=== PATIENT | female | born 1995 | race African-American/Black ===

== ENCOUNTER 2019-06-16 10:33 | Inpatient (IN) | payer MEDICAID ==
[2019-06-16] MEDS ORDERED: RINGERS SOLUTION,LACTATED 1,000 ML IV ONE (11:45)
--- NOTE | 2019-06-16 12:06 | Admission Physical ---
Datetime Report Generated by CPN: 06/16/2019 12:06 CURRENT ADMISSION Hx Assessment: The History has been Reviewed and is Current Chief Complaint: Uterine Contractions; Suspected Ruptured Membranes Indication for Induction: Not Applicable Admit Impression : Term, Intrauterine ; Active Labor; Ruptured Membranes Admit Plan: Admit to Unit; Initiate Labor Protocol ALLERGIES Medication Allergies: No Medication Allergies: No Known Allergies (06/16/2019) Latex: No Latex Allergies Food Allergies: NONE Environmental Allergies: NONE OBSTETRICAL HISTORY EDC: 06/25/2019 00:00 : 1 Para: 0 Term: 0 : 0 SAB: 0 IAB: 0 Ectopic: 0 Livin Cesareans: 0 VBACs: 0 Multiple Births: 0 Gestational Diabetes: No Rh Sensitization: No Incompetent Cervix: No ODIN: No Infertility: No ART Treatment: No Uterine Anomaly: No IUGR: No Hx Previous C/S: No Macrosomia: No Hx Loss/Stillborn: No PIH: No Hx : No Placenta Previa/Abruption: No Depression/PP Depression: No PTL/PROM: No Post Hemorrhage: No Current Procedures: Ultrasound SEE RECORDS Alcohol: No Marijuana : No Cocaine: No Other Illicit Drugs: No Cigarettes: Never Smoker. [id number] MEDICAL HISTORY Diabetes: No Blood Transfusion: No Pulmonary Disease (Asthma, TB): Yes Breast Disease: No Hypertension: No Functional Support Analyst Surgery: No Heart Disease: No Hosp/Surgery: No Autoimmune Disorder: No Anesthetic Complications: No Kidney Disease: No Abnormal Pap Smear: No Neuro/Epilepsy: No Psychiatric Disorders: No Other Medical Diseases: Yes Hepatitis/Liver Disease: No Significant Family History: No Varicosities/Phlebitis: No Trauma/Violence : No Thyroid Dysfunction: No Medical History Comments: CHILDHOOD ASTHMA; OBESITY INFECTIOUS HISTORY Gonorrhea: No Genital Herpes: No Chlamydia: No Tuberculosis: No Syphilis: No Hepatitis: No HIV/AIDS Exposure: No Rash or Viral Illness: No HPV: No PHYSICAL EXAM General: Normal Heart: Normal Lungs: Normal Abdomen: Normal Pelvic Type: Adequate Vital Signs: Reviewed; Within Normal Limits VAGINAL EXAM Dilatation: 1 Effacement: 100 Station: -2 Contraction Comments: irregular MEMBRANES Membranes: Ruptured FETUS A EGA: 38.5 Monitoring: Auscultation Variability: Moderate 6-25bpm FHR Category: Category I Presentation: Vertex Admit Comment: 23yo G1 @ 38w5d into L_D with SROM @ 0930 and contractions since yesterday. Pt. is O pos, RI, GBS neg with significant hx for obesity and childhood asthma and an elevated 1hr glucola this . Plan is to admit, augment as needed. Desires something for pain at this time, will give IV pain medicaiton. Dr. Ramirez is the OB welcome wagon hostess and aware of admission. PLANS FOR LABOR AND DELIVERY Labor and Delivery: None Pain Management: Natural Feeding Preference: Breast Benefit of Breast Feed Discussed: Yes Circumcision: Yes INFORMED CONSENT Assignment: Sandy Ramirez MD Signature: with User ID: Tom : with User ID: Tom
[2019-06-16 13:39] LABS: HEMATOCRIT 36.8 % (36.0-47.0); HEMOGLOBIN 12.3 g/dL (12.0-15.5); MEAN CORPUSCULAR HEMOGLOBIN 26.9 pg (27.0-33.4); MEAN CORPUSCULAR HGB CONC 33.5 g/dL (32.0-36.0); MEAN CORPUSCULAR VOLUME 80 fl (80-97); PLATELET COUNT 166 10^3/uL (150-450); RED BLOOD COUNT 4.59 10^6/uL (3.72-5.28); RED CELL DISTRIBUTION WIDTH 14.1 % (11.5-14.0); WHITE BLOOD COUNT 13.2 10^3/uL (4.0-10.5)
[2019-06-16 13:51] LABS: APPEARANCE,URINE SLIGHTLY-CLOUDY; BILIRUBIN,URINE NEGATIVE (NEGATIVE); COLOR,URINE YELLOW; GLUCOSE, URINE NEGATIVE (NEGATIVE); KETONES,URINE TRACE mg/dL (NEGATIVE); LEUKOCYTE ESTERASE,URINE NEGATIVE (NEGATIVE); NITRITE,URINE NEGATIVE (NEGATIVE); PROTEIN,URINE NEGATIVE (NEGATIVE); URINE SPECIFIC GRAVITY 1.019; UROBILINOGEN,URINE NEGATIVE mg/dL (<2.0)
[2019-06-16 14:18] LABS: URINE AMPHETAMINES SCREEN NEGATIVE; URINE BARBITURATES SCREEN NEGATIVE; URINE BENZODIAZEPINES SCREEN NEGATIVE; URINE COCAINE SCREEN NEGATIVE; URINE MARIJUANA (THC) SCREEN NEGATIVE; URINE METHADONE SCREEN NEGATIVE; URINE PHENCYCLIDINE SCREEN NEGATIVE
[2019-06-16] MEDS ORDERED: OXYTOCIN/NORMAL SALINE 20 UNIT/1,000 ML RTUINJ IV PRN ×2 (14:45→21:20)
[2019-06-16] MEDS ORDERED: OXYTOCIN 10 UNIT/ML VIAL ONE (14:48)
[2019-06-16] MEDS ORDERED: MISOPROSTOL 0.2 MG TABLET ONE (14:48)
[2019-06-16] MEDS ORDERED: OXYTOCIN/NORMAL SALINE 20 UNIT/1,000 ML RTUINJ ONE (14:49)
[2019-06-16] MEDS ORDERED: LIDOCAINE 1% INJ-PF (10 MG/ML) 30 ML SDV ONE (14:49)
[2019-06-16] MEDS ORDERED: PROMETHAZINE HCL INJ 25 MG/1 ML VIAL IV ONE (15:11)
[2019-06-16] MEDS ORDERED: NALBUPHINE HCL INJ 10 MG/1 ML AMPULE IV ONE (15:11)
[2019-06-16] MEDS ORDERED: PROMETHAZINE HCL INJ 25 MG/1 ML VIAL ONE (15:14)
[2019-06-16] MEDS ORDERED: NALBUPHINE HCL INJ 10 MG/1 ML AMPULE ONE (15:14)
[2019-06-16 17:29] LABS: HEMATOCRIT 38.1 % (36.0-47.0); HEMOGLOBIN 12.5 g/dL (12.0-15.5); MEAN CORPUSCULAR HEMOGLOBIN 26.6 pg (27.0-33.4); MEAN CORPUSCULAR HGB CONC 32.8 g/dL (32.0-36.0); MEAN CORPUSCULAR VOLUME 81 fl (80-97); PLATELET COUNT 211 10^3/uL (150-450); WHITE BLOOD COUNT 17.5 10^3/uL (4.0-10.5)
[2019-06-16 17:53] LABS: ALBUMIN 3.8 g/dL (3.5-5.0); ALKALINE PHOSPHATASE 305 U/L (38-126); ANION GAP 12 (5-19); ASPARTATE AMINO TRANSFERASE 21 U/L (14-36); BILIRUBIN,DIRECT 0.1 mg/dL (0.0-0.4); BILIRUBIN,TOTAL 0.4 mg/dL (0.2-1.3); BLOOD UREA NITROGEN 6 mg/dL (7-20); CALCIUM 9.6 mg/dL (8.4-10.2); CARBON DIOXIDE 20 mmol/L (22-30); CHLORIDE 101 mmol/L (98-107); GLUCOSE 94 mg/dL (75-110); POTASSIUM 4.3 mmol/L (3.6-5.0); TOTAL PROTEIN 7.2 g/dL (6.3-8.2); URIC ACID 5.8 mg/dL (2.5-6.2)
[2019-06-16] MEDS ORDERED: MAGNESIUM HYDROXIDE SUSP 30 ML UDCUP PO PRN (21:20)
[2019-06-16] MEDS ORDERED: PROMETHAZINE HCL INJ 25 MG/1 ML VIAL IV PRN (21:20)
[2019-06-16] MEDS ORDERED: DIPHENHYDRAMINE HCL 25 MG CAPSULE PO PRN (21:20)
[2019-06-16] MEDS ORDERED: GLYCERIN/WITCH HAZEL LEAF 1 EACH MED..WIPE TP PRN (21:20)
[2019-06-16] MEDS ORDERED: NA PHOS,M-B/NA PHOS,DI-BA (ADULT) 133 ML ENEMA PR PRN (21:20)
[2019-06-16] MEDS ORDERED: BENZOCAINE/MENTHOL AEROSOL SPRAY 56 ML TOP PRN (21:20)
[2019-06-16] MEDS ORDERED: DIBUCAINE 1% OINTMENT 56 GM TP PRN (21:20)
[2019-06-16] MEDS ORDERED: DIPH/PERTUSS(ACELL)/TETANUS VAC/PF 0.5 ML SYR (>=10YO) IM PRN (21:20)
[2019-06-16] MEDS ORDERED: PROMETHAZINE HCL 25 MG SUPP.RECT PR PRN (21:20)
[2019-06-16] MEDS ORDERED: PROMETHAZINE HCL 25 MG TABLET PO PRN (21:20)
[2019-06-16] MEDS ORDERED: PSEUDOEPHEDRINE HCL 30 MG TABLET PO PRN (21:20)
[2019-06-16] MEDS ORDERED: ACETAMINOPHEN 650 MG SUPP.RECT PR PRN (21:20)
[2019-06-16] MEDS ORDERED: ACETAMINOPHEN WITH CODEINE #3 TABLET PO PRN ×2 (21:20)
[2019-06-16] MEDS ORDERED: MEASLES,MUMPS&RUBELLA VACC/PF 0.5 ML VIAL SUBCUT PRN (21:20)
[2019-06-16] MEDS ORDERED: IBUPROFEN 800 MG TABLET ONE (21:25)
[2019-06-16] MEDS: IBUPROFEN 800 MG TABLET PO SCH (21:29)
[2019-06-16] MEDS ORDERED: HYDROCODONE/ACETAMINOPHEN 5-325 MG TABLET PO PRN (21:32)
--- NOTE | 2019-06-16 22:51 | Warning Signs in Babies ---
VOD Warning Signs Datetime Report Generated by N: 06/16/2019 22:50 VOD#608 -Warning Signs in Babies: Viewed with Parent(s)/Family (06/16/2019 22:45:Freddie Ford RN)
[2019-06-17] MEDS: FAMOTIDINE 20 MG TABLET PO SCH ×3 (01:41→21:10)
--- NOTE | 2019-06-17 04:53 | Delivery Summary ---
Del Sum A-C Datetime Report Generated by CPN: 06/17/2019 04:53 DELIVERY PERSONNEL DELIVERY PERSONNEL: [id number] Delivery Doctor:: Sandy Ramirez MD Labor and Delivery Nurse:: Freddie Ford RNyarn spinner Nurse:: Lyn Conte RN Broke Beater Machine Operator:: DANY Bryan Towing Pilot/HYDROGRAPHY TEACHER: Daxa Tre, ST MATERNAL INFORMATION Delivery Anesthesia: None Medications After Delivery: Pitocin Bolus-Please Comment; Pitocin Drip 20 Units/1000ml NSS Estimated Blood Loss (ml): 100 Delivery QBL: 100 Maternal Complications: None Provider Comments: After delivery of the head, the anterior shoulder delivered. The posterior shoulder was delayed approximately 10 seconds. After the shoulders the rest of the body followed easily. Terminal meconium noted. vigorously crying. Cord clamping delayed 30 seconds and placed on mothers chest. Cord then doubly clamped and cut. Both stable. LABOR SUMMARY EDC: 06/25/2019 00:00 No. Babies in Womb: 1 Attempted: No Labor Anesthesia: None LABOR INFORMATION Reason for Induction: Not Applicable Onset of Labor: 06/15/2019 22:00 Complete Dilatation: 06/16/2019 20:56 Oxytocin: Augmentation Group B Beta Strep: NEGATIVE Antibiotics # of Doses: 0 Steroids Given: None Reason Steroids Not Administered: Not Applicable MEMBRANES Membranes Rupture Method: Spontaneous Rupture of Membranes: 06/16/2019 09:30 Length of Rupture (hr): 11.63 Amniotic Fluid Color: Clear Amniotic Fluid Amount: Scant Amniotic Fluid Odor: None STAGES OF LABOR Stage 1 hr: 22 Stage 1 min: 56 Stage 2 hr: 0 Stage 2 min: 12 Stage 3 hr: 0 Stage 3 min: 4 Total Time in Labor hr: 23 Total Time in Labor min: 12 VAGINAL DELIVERY Episiotomy: None Other Laceration: right labial laceration less than 1 cm, hemostatic/ shallow. No repair needed. Laceration Repair: Not Applicable Sponge Count Correct: N/A Sharps Count Correct: N/A CSECTION DELIVERY Primary Indication: N/A Secondary Indication: N/A CSection Incidence: N/A Labor: N/A Elective: N/A CSection Incision: N/A BABY A INFORMATION Infant Delivery Date/Time: 06/16/2019 21:08 Method of Delivery: Vaginal Born in Route : No : N/A Forceps: N/A Vacuum Extraction: N/A Shoulder Dystocia : No PRESENTATION/POSITION BABY A Presentation: Cephalic Cephalic Presentation: Vertex Vertex Position: Right Occipital Anterior Breech Presentation: N/A PLACENTA INFORMATION BABY A Placenta Delivery Time : 06/16/2019 21:12 Placenta Method of Delivery: Spontaneous Placenta Status: Delivered SCORES BABY A Heart Rate 1 min: >100 bpm Resp Effort 1 min: Good Cry Reflex Irritability 1 min: Cough or Sneeze or Pulls Away Muscle Tone 1 min: Active Motion Color 1 min: Blue/Pale Resuscitation Effort 1 min: Tactile Stimulation SCORE 1 MIN: 8 Heart Rate 5 min: >100 bpm Resp Effort 5 min: Good Cry Reflex Irritability 5 min: Cough or Sneeze or Pulls Away Muscle Tone 5 min: Active Motion Color 5 min: Body [place], Extremities Blue Resuscitation Effort 5 min: Tactile Stimulation SCORE 5 MIN: 9 INFANT INFORMATION BABY A Gestational Age at Delivery: 38.5 Gestational Status: Early Term- 37- 38.6 Weeks Outcome : Liveborn Condition : Stable Sex: Male IDENTIFICATION BABY A Verification Date/Time: 06/16/2019 21:16 ID Band Number: [id number] Mother's Name Verified: Yes Infant RN Verifying : K Logan, RN/ D [place], RN WEIGHT/LENGTH BABY A Infant Birthweight (gm): 3002 Weight (lb): 6 Weight (oz): 10 Infant Length (in): 19.50 Infant Length (cm): 49.53 CORD INFORMATION BABY A No. Cord Vessels: 3 Nuchal Cord : N/A Cord Blood Taken: Yes-For Eval (Mom's Blood Type - or O+) Infant Suction: Mouth ASSESSMENT BABY A Infant Respirations: Appears Normal Skin to Skin: Yes Skin to Skin Time (min): 60 BABY B INFORMATION : N/A SIGNATURES Signature: with User ID: Nancy : with User ID: Nancy
[2019-06-17] MEDS: IBUPROFEN 800 MG TABLET PO SCH ×3 (06:18→21:07)
[2019-06-17 07:02] LABS: HEMATOCRIT 33.7 % (36.0-47.0); HEMOGLOBIN 11.2 g/dL (12.0-15.5); MEAN CORPUSCULAR HEMOGLOBIN 26.6 pg (27.0-33.4); MEAN CORPUSCULAR HGB CONC 33.1 g/dL (32.0-36.0); MEAN CORPUSCULAR VOLUME 80 fl (80-97); PLATELET COUNT 192 10^3/uL (150-450); RED CELL DISTRIBUTION WIDTH 13.9 % (11.5-14.0); WHITE BLOOD COUNT 18.4 10^3/uL (4.0-10.5)
[2019-06-17] MEDS: FERROUS SULFATE 325 MG TABLET PO SCH ×2 (09:39→17:48)
[2019-06-17] MEDS: DOCUSATE SODIUM 100 MG CAPSULE PO SCH ×2 (09:39→17:48)
[2019-06-17] MEDS: SENNOSIDES/DOCUSATE 8.6-50 MG 1 EACH TABLET PO SCH (09:39)
[2019-06-17] MEDS: PRENATAL VITAMIN W DHA CAPSULE PO SCH (09:39)
[2019-06-18] MEDS: IBUPROFEN 800 MG TABLET PO SCH ×2 (05:12→13:11)
[2019-06-18] MEDS ORDERED: INFLUENZA QUAD (6MOS+) 2019-20 VAC 0.5 ML SYR IM ONE (08:00)
[2019-06-18] MEDS: FAMOTIDINE 20 MG TABLET PO SCH (09:31)
[2019-06-18] MEDS: DOCUSATE SODIUM 100 MG CAPSULE PO SCH (09:32)
[2019-06-18] MEDS: PRENATAL VITAMIN W DHA CAPSULE PO SCH (09:32)
[2019-06-18] MEDS: SENNOSIDES/DOCUSATE 8.6-50 MG 1 EACH TABLET PO SCH (09:32)
[2019-06-18] MEDS: FERROUS SULFATE 325 MG TABLET PO SCH (09:32)
--- NOTE | 2019-06-18 10:11 | PDOC DISCHARGE SUMMARY ---
Impression - Admit/DC Date/PCP Admission Date/Primary Care Provider: 06/16/19 11:42 LEXIE MAYORGA MD Discharge Date: 06/18/19 - Discharge Diagnosis (1) (spontaneous vaginal delivery) Is this a current diagnosis for this admission?: Yes (2) Obstetric labial laceration, delivered, current hospitalization Is this a current diagnosis for this admission?: Yes (3) Spontaneous rupture of amniotic membranes Is this a current diagnosis for this admission?: Yes - Additional Information Resuscitation Status: Full Code Discharge Diet: Regular Discharge Activity: Balance Activity w/Rest, Pelvic Rest Referrals: LEXIE MAYORGA MD [Primary Care Provider] - Prescriptions: Ibuprofen [Motrin 800 mg Tablet] 800 mg PO Q8HP PRN #30 tablet PRN Reason: Home Medications: Pnv No.95/Ferrous Fum/Folic AC [ Caplet] 1 tab PO DAILY 06/16/19 Ibuprofen [Motrin 800 mg Tablet] 800 mg PO Q8HP PRN #30 tablet 06/18/19 Results Laboratory Results: WBC 18.4 10^3/uL (4.0-10.5) H 06/17/19 06:49 RBC 4.20 10^6/uL (3.72-5.28) 06/17/19 06:49 Hgb 11.2 g/dL (12.0-15.5) L 06/17/19 06:49 Hct 33.7 % (36.0-47.0) L 06/17/19 06:49 MCV 80 fl (80-97) 06/17/19 06:49 MCH 26.6 pg (27.0-33.4) L 06/17/19 06:49 MCHC 33.1 g/dL (32.0-36.0) 06/17/19 06:49 RDW 13.9 % (11.5-14.0) 06/17/19 06:49 Plt Count 192 10^3/uL (150-450) 06/17/19 06:49 Sodium 132.8 mmol/L (137-145) L 06/16/19 17:20 Potassium 4.3 mmol/L (3.6-5.0) 06/16/19 17:20 Chloride 101 mmol/L (98-107) 06/16/19 17:20 Carbon Dioxide 20 mmol/L (22-30) L 06/16/19 17:20 Anion Gap 12 (5-19) 06/16/19 17:20 BUN 6 mg/dL (7-20) L 06/16/19 17:20 Creatinine 0.53 mg/dL (0.52-1.25) 06/16/19 17:20 Est GFR ( Amer) > 60 (>60) 06/16/19 17:20 Est GFR (MDRD) Non-Af > 60 (>60) 06/16/19 17:20 Glucose 94 mg/dL (75-110) 06/16/19 17:20 Uric Acid 5.8 mg/dL (2.5-6.2) 06/16/19 17:20 Calcium 9.6 mg/dL (8.4-10.2) 06/16/19 17:20 Total Bilirubin 0.4 mg/dL (0.2-1.3) 06/16/19 17:20 Direct Bilirubin 0.1 mg/dL (0.0-0.4) 06/16/19 17:20 Neonat Total Bilirubin Not Reportable 06/16/19 17:20 Neonat Direct Bilirubin Not Reportable 06/16/19 17:20 Neonat Indirect Bili Not Reportable 06/16/19 17:20 AST 21 U/L (14-36) 06/16/19 17:20 ALT 15 U/L (<35) 06/16/19 17:20 Alkaline Phosphatase 305 U/L (38-126) H 06/16/19 17:20 Lactate Dehydrogenase 203 U/L (120-246) 06/16/19 17:20 Total Protein 7.2 g/dL (6.3-8.2) 06/16/19 17:20 Albumin 3.8 g/dL (3.5-5.0) 06/16/19 17:20 Urine Color YELLOW 06/16/19 13:15 Urine Appearance SLIGHTLY-CLOUDY 06/16/19 13:15 Urine pH 8.0 (5.0-9.0) 06/16/19 13:15 Ur Specific Evans 1.019 06/16/19 13:15 Urine Protein NEGATIVE mg/dL (NEGATIVE) 06/16/19 13:15 Urine Glucose (UA) NEGATIVE mg/dL (NEGATIVE) 06/16/19 13:15 Urine Ketones TRACE mg/dL (NEGATIVE) H 06/16/19 13:15 Urine Blood MODERATE (NEGATIVE) H 06/16/19 13:15 Urine Nitrite NEGATIVE (NEGATIVE) 06/16/19 13:15 Urine Bilirubin NEGATIVE (NEGATIVE) 06/16/19 13:15 Urine Urobilinogen NEGATIVE mg/dL (<2.0) 06/16/19 13:15 Ur Leukocyte Esterase NEGATIVE (NEGATIVE) 06/16/19 13:15 Urine Ascorbic Acid NEGATIVE (NEGATIVE) 06/16/19 13:15 Membranes Rupture POSITIVE (NEGATIVE) H 06/16/19 10:59 Urine Opiates Screen NEGATIVE 06/16/19 13:15 Urine Methadone Screen NEGATIVE 06/16/19 13:15 Ur Barbiturates Screen NEGATIVE 06/16/19 13:15 Ur Phencyclidine Scrn NEGATIVE 06/16/19 13:15 Ur Amphetamines Screen NEGATIVE 06/16/19 13:15 U Benzodiazepines Scrn NEGATIVE 06/16/19 13:15 Urine Cocaine Screen NEGATIVE 06/16/19 13:15 U Marijuana (THC) Screen NEGATIVE 06/16/19 13:15 RPR NONREACTIVE (NONREACTIVE) 06/16/19 12:29 Blood Type O POSITIVE 06/16/19 12:29 Antibody Screen NEGATIVE 06/16/19 12:29
[2019-06-18 12:48] VITALS: BP 133/61
== END 2019-06-18 16:37 | disposition home or self-care (01) | DRG 807 ==
LOC: LC 10:33 → LR 11:42 → 2S 23:21
PROVIDERS: ADMIT Obstetrics & Gynecology; ATTEND Obstetrics & Gynecology
PROC: 10E0XZZ Delivery of Products of Conception, External Approach (ICD-10-PCS; principal; 2019-06-16)
PROC: 3E02340 Introduction of Influenza Vaccine into Muscle, Percutaneous Approach (ICD-10-PCS; 2019-06-18)
DX: O77.0 Labor and delivery complicated by meconium in amniotic fluid (principal); Z37.0 Single live birth; O99.214 Obesity complicating childbirth; E66.9 Obesity, unspecified; O70.0 First degree perineal laceration during delivery; Z3A.38 38 weeks gestation of pregnancy; Z23 Encounter for immunization
CPT/HCPCS: 36415; 59025; 80053; 80307; 81005; 83615; 84112; 84550; 85027; 86592; 86850; 86900; 86901; 90686; J2300; J2550; J2590; J3490